=== PATIENT | female | born 1960 ===

== ENCOUNTER → 2016-06-22 | Outpatient (CLI) | payer BC | LOC: RAD 08:40 | PROVIDERS: ATTEND Family Medicine | DX: R10.11 Right upper quadrant pain (principal); K80.80 Other cholelithiasis without obstruction | CPT/HCPCS: 76705 ==

== ENCOUNTER 2016-07-10 09:22 | Day surgery (SDC) | payer BC ==
[~2016-07-10] VITALS: Ht 167.6 cm; Wt 93.0 kg
[2016-07-10] VITALS (7 sets, daily range): BP systolic 124–151; BP diastolic 36–97
[~2016-07-10 09:22] MED LIST: ACETAMINOPHEN 500 MG TAB (TYLENOL) PO SCH; LACTATED RINGERS 1,000 ML IV SCH; SODIUM CHLORIDE FLUSH 3 ML SYR IV PRN; oxyCODONE IMMEDIATE RELEASE 5 MG (OXYIR) TAB PO SCH
--- OUTSIDE RECORDS SUMMARY | 2016-07-10 09:27 | XMS REPORT | Continuity of Care Document ---
Author Author [facility] Address Unknown Phone Unavailable Allergies Active Description Code Type Severity Reaction Onset Reported/Identified Relationship to Patient Clinical Status Yes No Known Drug Allergies [id number] Drug Allergy Unknown N/ A 03/30/2012 Medications Problems Date Dx Coded Attending Type Code Diagnosis Diagnosed By 03/30/2012 Ot 873.0 OPEN WOUND OF SCALP 03/30/2012 Ot E849.0 ACCIDENT IN HOME 03/30/2012 Ot E885.9 FALL FROM SLIPPING, TRIPPING, OR STUMBLI 05/20/2013 MONICA MELLO, GARRISON Patricio Ot 873.43 OPEN WOUND OF LIP 05/20/2013 MONICA MELLO, GARRISON Patricio Ot E917.3 FURNIT W/O SUB FALL 06/24/2016 Kavin MELLO, Pankaj Santa Ot K80.80 OTHER CHOLELITHIASIS WITHOUT OBSTRUCTION 06/24/2016 Pankaj Vale MD Ot R10.11 RIGHT UPPER QUADRANT PAIN 06/26/2016 Pankaj Vale MD Ot K80.80 OTHER CHOLELITHIASIS WITHOUT OBSTRUCTION 06/26/2016 Pankaj Vale MD Ot R10.11 RIGHT UPPER QUADRANT PAIN 07/01/2016 Pankaj Vale MD Ot K80.80 OTHER CHOLELITHIASIS WITHOUT OBSTRUCTION 07/01/2016 Pankaj Vale MD Ot R10.11 RIGHT UPPER QUADRANT PAIN Procedures Results Encounters ACCT No. Visit Date/Time Discharge Status Pt. Type Provider Facility Loc./Unit Complaint [id number] 05/20/2013 17:01:00 2013 17:48:00 DIS Emergency MONICA MELLO, [facility] ED [id number] 07/10/2016 09:30:00 PEN Preadmit KYLE MELLO, [facility] ASC LAP GEE POSS. OPEN,W/CHOLANGIOGRAM [id number] 06/22/2016 08:40:00 ACT Outpatient Kavin MELLO, [facility] RAD RIGHT UPPER QUAD PAIN [id number] 03/30/2012 22:47:00 Document Registration
[2016-07-10] MEDS ORDERED: BUPIVACAINE/EPINEPHRINE 0.25%-1:200,000 (MARCAINE) 30 ML VIAL INJ ONE (09:38)
[2016-07-10] MEDS ORDERED: PROPOFOL 20 ML IV ONE (10:20)
[2016-07-10] MEDS ORDERED: ROCURONIUM 50 MG/5 ML (ZEMURON) VIAL IV ONE (10:20)
[2016-07-10] MEDS ORDERED: ONDANSETRON 2 MG/ML (Z0FRAN) 2 ML VIAL ONE (10:20)
[2016-07-10] MEDS ORDERED: ALFENTANIL 500 MCG/ML (ALFENTA) 5 ML AMP IV ONE (10:20)
[2016-07-10] MEDS ORDERED: ePHEDrine SULFATE 50 MG/ML 1 ML AMP ONE (10:51)
[2016-07-10] MEDS ORDERED: KETOROLAC 60 MG/2 ML (TORADOL) VIAL IM ONE (12:10)
[2016-07-10] MEDS ORDERED: GLYCOPYRROLATE 0.2 MG/ML (ROBINUL) 1 ML VIAL ONE (12:11)
[2016-07-10] MEDS ORDERED: NEOSTIGMINE 1 MG/ML SYRINGE ONE (12:11)
--- NOTE | 2016-07-10 13:30 | OPERATIVE REPORT ---
DATE OF OPERATION: 07/10/2016 PRE-OPERATIVE DIAGNOSIS: Chronic calculus cholecystitis POST-OPERATIVE DIAGNOSIS: Chronic and subacute calculus cholecystitis OPERATIVE PROCEDURE: Laparoscopic cholecystectomy with intraoperative cholangiogram SURGEON: Kyle Olguin MD PRINCIPAL TECHNOLOGIST: Mary Vallecillo RN FA ANESTHESIA: General orotracheal POSITION: Reversed Trendelenburg, left rotation PREP: Chlorhexidine ESTIMATED BLOOD LOSS: 100 mL FINDINGS: Same with normal intraoperative cholangiogram. OPERATIVE NOTE: Following satisfactory induction of anesthesia, the patient was prepped and draped in sterile fashion. Local anesthetic of 0.25% Marcaine with epinephrine was infiltrated at planned incision sites. An infraumbilical skin crease incision was made at the midline. This was carried down to and through the fascia under direct vision. The Jennifer blunt tipped cannula was inserted and anchored to the fascia with a pursestring suture of #0 Vicryl. The video laparoscope was introduced confirming intra-peritoneal placement. The peritoneal cavity was insufflated to a maximum pressure of 15 mmHg of carbon dioxide. Accessory cannulas were then placed under direct vision as follows. A 10-mm cannula in the midline subxiphoid position and 5 mm cannulas in the right upper and lower quadrants. The above findings were noted. The patient had normal liver, stomach, duodenum, small and large intestine, and peritoneal surfaces. The gallbladder was grasped and retracted cephalad and laterally. The gallbladder cystic duct junction and cystic artery were circumferentially dissected. The dissection was carried up well onto the gallbladder fossa thus achieving a critical view. The cystic duct was clipped at the gallbladder junction and incised for cholangiography. The Ranfac cholangiogram cannula was inserted percutaneously by way of a 14-gauge Angiocath and directed into the cystic duct. The duct was clipped over the cannula and cholangiogram obtained using half- strength contrast under C-arm fluoroscopic guidance. This revealed mildly dilated ductal system with no filling defects. There was prompt extravasation of contrast into the duodenum. Images over read by the radiologist as normal. The cannula was removed and the cystic duct triply clipped and transected. The cystic artery was doubly clipped on the proximal side, singly on the distal side and transected. The gallbladder was removed from its fossa using blunt dissection and cautery. Due to the fact that one area of the gallbladder was relatively friable, there was some spillage of stones. These were retrieved with stone forceps and submitted with the specimen. The gallbladder was removed and placed in specimen bag. The operative site was irrigated with copious amounts of saline demonstrating good hemostasis and no further stones. The irrigant was aspirated. Additional local anesthetic was infused over the gallbladder fossa for postop pain control. Closure was accomplished as follows. Accessory cannulas were removed under direct vision revealing good hemostasis at their insertion sites. The peritoneal cavity was deflated of excess carbon dioxide. The gallbladder in specimen bag was removed by way of the infraumbilical incision and submitted to pathology. The gallbladder was cultured prior to submission to pathology. The incision required slight enlargement to allow the passage of the gallbladder. The infraumbilical incision fascia was closed with interrupted figure-of-8 sutures of #0 Vicryl, which were placed under direct vision following, which they were tied. The xiphoid incision fascia was closed with a single, simple interrupted suture of #0 Vicryl. The skin incisions were closed with continuous subcuticular suture of 4-0 Monocryl and Dermabond dressing. The patient tolerated the procedure well and transferred to recovery in stable condition. Final instruments, needle and sponge counts correct.
[2016-07-10] MEDS ORDERED: diphenhydrAMINE 50 MG/ML INJ (BENADRYL) IV ONE (13:35)
[2016-07-10] MEDS ORDERED: METOCLOPRAMIDE 10 MG/2 ML (REGLAN) VIAL IV ONE (13:35)
[2016-07-10] MEDS ORDERED: HYDROcodone/APAP 5 MG/325 MG (NORCO) TAB PO PRN (13:45)
[2016-07-10] MEDS ORDERED: ONDANSETRON 2 MG/ML (Z0FRAN) 2 ML VIAL IV PRN (13:45)
--- NOTE | 2016-07-10 16:05 | Diagnostic Imaging Report ---
EXAM: OPERATIVE CHOLANGIOGRAM INDICATION: Cholelithiasis. COMPARISON: Gallbladder ultrasound of 06/22/2016. FINDINGS: Four fluoroscopic images obtained intraoperatively demonstrate cholecystectomy. The cystic duct has been cannulated with flow of contrast within the common bile and proximal intrahepatic biliary ducts. The duct is prominent in size. No strictures. No filling defects within the visualized biliary ductal system. There is emptying of contrast from the common bile duct into the small bowel. IMPRESSION: No filling defects in the intraoperative cholangiogram. Findings discussed with Dr. Kyle Olguin at 12:15 p.m. on 07/10/2016. Dictated by: Dictated on workstation # [id number]
== END 2016-07-10 15:10 ==
LOC: ASC 09:22
PROVIDERS: ATTEND Surgery
DX: K80.10 Calculus of gallbladder with chronic cholecystitis without obstruction (principal); E66.9 Obesity, unspecified
CPT/HCPCS: 47563; 74300; 87070; 87075; J1200; J1885; J2710; J2765; J3490; J7120; Q9967